=== PATIENT | female | born 1985 | race Caucasian/White ===

== ENCOUNTER 2020-01-14 11:26 | Emergency (ER) | payer SELFPAY ==
--- NOTE | 2020-01-14 12:30 | ER ---
Nurse's Notes [facility] Name: Padmini Santoro Age: 34 yrs Sex: Female : 1985 Arrival Date: 01/14/2020 Time: 11:27 Bed 28 [facility] MD: Diagnosis: Irritant contact dermatitis Presentation: 01/13 11:41 Chief complaint: Patient states: Rash on face, stomach, R arm started yesterday. Denies ca1 taking new medication or new food. Denies difficulty breathing and swallowing. Coronavirus screen: Client denies travel out of the [place] in the last 14 days. At this time, the client does not indicate any symptoms associated with coronavirus-19. Ebola Screen: Patient negative for fever greater than or equal to 101.5 degrees Fahrenheit, and additional compatible Ebola Virus Disease symptoms Patient denies exposure to infectious person. Patient denies travel to an Ebola-affected area in the 21 days before illness onset. No symptoms or risks identified at this time. Initial Sepsis Screen: Does the patient meet any 2 criteria? No. Patient's initial sepsis screen is negative. Does the patient have a suspected source of infection? No. Patient's initial sepsis screen is negative. Risk Assessment: Do you want to hurt yourself or someone else? Patient reports no desire to harm self or others. Onset of symptoms was January 14, 2020. 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 - Social history:: Smoking status: Patient denies any tobacco usage or history of. Screenin:43 Abuse screen: Denies threats or abuse. Nutritional screening: No deficits noted. jd3 Tuberculosis screening: No symptoms or risk factors identified. Fall Risk Ambulatory Aid- None/Bed Rest/Nurse Assist (0 pts). Gait- Normal/Bed Rest/Wheelchair (0 pts) Mental Status- Oriented to own ability (0 pts). Total Garner Fall Scale indicates No Risk (0-24 pts). Assessment: 12:42 General: Appears in no apparent distress. uncomfortable, Behavior is calm, cooperative, jd3 appropriate for age. Pain: Complains of pain in face Quality of pain is described as burning. Neuro: Level of Consciousness is awake, alert, obeys commands, Oriented to person, place, time, situation. Cardiovascular: Capillary refill < 3 seconds Patient's skin is warm and dry. Respiratory: Airway is patent Respiratory effort is even, unlabored, Respiratory pattern is regular, symmetrical, Denies cough, shortness of breath. GI: No signs and/or symptoms were reported involving the gastrointestinal system. : No signs and/or symptoms were reported regarding the genitourinary system. EENT: No signs and/or symptoms were reported regarding the EENT system. Derm: Skin is intact, Skin is dry, Skin is normal, Skin temperature is warm Rash noted that is itchy, red, on face. Musculoskeletal: Circulation, motion, and sensation intact. Range of motion: intact in all extremities. Vital Signs: 11:41 BP 99 / 86; Pulse 68; Resp 16 S; Temp 97.6(TE); Pulse Ox 100% on R/A; Weight 77.11 kg ca1 (R); Height 5 ft. 3 in. (160.02 cm) (R); Pain 0/10; 11:41 Body Mass Index 30.11 (77.11 kg, 160.02 cm) ca1 ED Course: 11:27 Patient arrived in ED. as 11:43 Triage completed. ca1 11:43 Arm band placed on right wrist. ca1 12:01 Isamar Melendez FNP-C is [facility]. snw 12:01 Warner Post MD is Attending Physician. snw 12:29 Sampson Love RN is Primary Nurse. jd3 12:43 Patient has correct armband on for positive identification. Bed in low position. Call jd3 light in reach. Side rails up X 1. Adult w/ patient. Pulse ox on. NIBP on. 12:53 No provider procedures requiring assistance completed. Patient did not have IV access jd3 during this emergency room visit. Administered Medications: 12:42 Drug: predniSONE 40 mg Route: PO; jd3 12:53 Follow up: Response: Medication administered at discharge. jd3 12:42 Drug: Pepcid 20 mg Route: PO; jd3 12:53 Follow up: Response: Medication administered at discharge. jd3 12:42 Drug: ZyrTEC - Cetirizine 10 mg Route: PO; jd3 12:53 Follow up: Response: Medication administered at discharge. jd3 Outcome: 12:30 Discharge ordered by . snw 12:53 Discharged to home ambulatory, with family. jd3 12:53 Condition: stable 12:53 Discharge instructions given to patient, family, Instructed on discharge instructions, follow up and referral plans. medication usage, Demonstrated understanding of instructions, follow-up care, medications, Prescriptions given X 4. 12:53 Patient left the ED. jd3 Signatures: Isamar Melendez, ROCIO-C SHAGGER-Ana Jo Jonathon RN RN jd3 Inna Doherty RN RN ca1
--- NOTE | 2020-01-14 12:31 | EDPHYS ---
Physician Documentation [facility] Name: Padmini Santoro Age: 34 yrs Sex: Female : 1985 Arrival Date: 01/14/2020 Time: 11:27 Bed 28 Private MD: ED Physician Warner Post HPI: 01/13 12:33 This 34 yrs old Female presents to ER via Ambulatory with complaints of Rash. snw 12:33 The patient's rash thought to be caused by Dermatitis. The rash is located on the left snw zygomatic area and left gnosticism and left side of forehead and anterior aspect of right lateral abdomen. The rash can be described as erythematous, raised. Onset: The symptoms/episode began/occurred suddenly. Associated signs and symptoms: Pertinent positives: itching. Severity of symptoms: At their worst the symptoms were moderate. The patient has not experienced similar symptoms in the past. The patient has not recently seen a physician. No new products, foods, does have a dog who is outside and inside. 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 - Social history:: Smoking status: Patient denies any tobacco usage or history of. ROS: 12:30 Constitutional: Negative for fever, chills, and weight loss, Eyes: Negative for injury, snw pain, redness, and discharge, ENT: Negative for injury, pain, and discharge, Neck: Negative for injury, pain, and swelling, Cardiovascular: Negative for chest pain, palpitations, and edema, Respiratory: Negative for shortness of breath, cough, wheezing, and pleuritic chest pain, Abdomen/GI: Negative for abdominal pain, nausea, vomiting, diarrhea, and constipation, Back: Negative for injury and pain, : Negative for injury, bleeding, discharge, and swelling, MS/Extremity: Negative for injury and deformity, Neuro: Negative for headache, weakness, numbness, tingling, and seizure, Psych: Negative for depression, anxiety, suicide ideation, homicidal ideation, and hallucinations. 12:30 Skin: Positive for rash. Exam: 12:30 Constitutional: This is a well developed, well nourished patient who is awake, alert, snw and in no acute distress. Eyes: Pupils equal round and reactive to light, extra-ocular motions intact. Lids and lashes normal. Conjunctiva and sclera are non-icteric and not injected. Cornea within normal limits. Periorbital areas with no swelling, redness, or edema. ENT: Nares patent. No nasal discharge, no septal abnormalities noted. Tympanic membranes are normal and external auditory canals are clear. Oropharynx with no redness, swelling, or masses, exudates, or evidence of obstruction, uvula midline. Mucous membranes moist. Neck: Trachea midline, no thyromegaly or masses palpated, and no cervical lymphadenopathy. Supple, full range of motion without nuchal rigidity, or vertebral point tenderness. No Meningismus. Chest/axilla: Normal chest wall appearance and motion. Nontender with no deformity. No lesions are appreciated. Cardiovascular: Regular rate and rhythm with a normal S1 and S2. No gallops, murmurs, or rubs. Normal PMI, no JVD. No pulse deficits. Respiratory: Lungs have equal breath sounds bilaterally, clear to auscultation and percussion. No rales, rhonchi or wheezes noted. No increased work of breathing, no retractions or nasal flaring. Abdomen/GI: Soft, non-tender, with normal bowel sounds. No distension or tympany. No guarding or rebound. No evidence of tenderness throughout. Back: No spinal tenderness. No costovertebral tenderness. Full range of motion. MS/ Extremity: Pulses equal, no cyanosis. Neurovascular intact. Full, normal range of motion. Neuro: Awake and alert, GCS 15, oriented to person, place, time, and situation. Cranial nerves II-XII grossly intact. Motor strength 5/5 in all extremities. Sensory grossly intact. Cerebellar exam normal. Normal gait. Psych: Awake, alert, with orientation to person, place and time. Behavior, mood, and affect are within normal limits. 12:30 Head/face: Noted is rash, of the left side of forehead, left gnosticism and left zygomatic area. 12:30 Skin: Appearance: normal except for affected area, contact dermatitis, on the anterior aspect of right lateral abdomen and right arm. Vital Signs: 11:41 BP 99 / 86; Pulse 68; Resp 16 S; Temp 97.6(TE); Pulse Ox 100% on R/A; Weight 77.11 kg ca1 (R); Height 5 ft. 3 in. (160.02 cm) (R); Pain 0/10; 11:41 Body Mass Index 30.11 (77.11 kg, 160.02 cm) ca1 MDM: 12:19 Patient medically screened. snw 12:33 Data reviewed: vital signs, nurses notes. Data interpreted: Pulse oximetry: on room air snw is 100 %. Interpretation: normal. Special discussion: Based on the history and exam findings, there is no indication for further emergent testing or inpatient evaluation. I discussed with the patient/guardian the need to see the primary care provider for further evaluation of the symptoms. Administered Medications: 12:42 Drug: predniSONE 40 mg Route: PO; jd3 12:53 Follow up: Response: Medication administered at discharge. jd3 12:42 Drug: Pepcid 20 mg Route: PO; jd3 12:53 Follow up: Response: Medication administered at discharge. jd3 12:42 Drug: ZyrTEC - Cetirizine 10 mg Route: PO; jd3 12:53 Follow up: Response: Medication administered at discharge. jd3 Disposition: 14:47 Co-signature as Attending Physician, Warner Post MD I agree with the assessment and kdr plan of care. Disposition: 01/14/20 12:30 Discharged to Home. Impression: Irritant contact dermatitis. - Condition is Stable. - Discharge Instructions: Contact Dermatitis, Pruritus, Rehydration, Adult. - Prescriptions for Elimite 5 % Topical Cream - apply 1 application by TOPICAL route one time Wash after 12 hours.; 60 gram. Pepcid 20 mg Oral Tablet - take 1 tablet by ORAL route every 12 hours for 10 days; 20 tablet. Zyrtec 10 mg Oral Tablet - take 1 tablet by ORAL route once daily As needed; 20 tablet. Prednisone 20 mg Oral Tablet - take 2 tablet by ORAL route once daily for 5 days; 10 tablet. - Medication Reconciliation Form, Thank You Letter, Antibiotic Education, Prescription Opioid Use form. - Follow up: Emergency Department; When: As needed; Reason: Worsening of condition. Follow up: Private Physician; When: 1 week; Reason: Recheck today's complaints, Continuance of care, Re-evaluation by your physician. Signatures: Warner Post MD MD kdr Waters, Shelly, [employer]-Sampson Poon RN RN jd3 AcInna anand RN RN ca1 Corrections: (The following items were deleted from the chart) 12:53 12:30 01/14/2020 12:30 Discharged to Home. Impression: Irritant contact dermatitis. jd3 Condition is Stable. Forms are Medication Reconciliation Form, Thank You Letter, Antibiotic Education, Prescription Opioid Use. Follow up: Emergency Department; When: As needed; Reason: Worsening of condition. Follow up: Private Physician; When: 1 week; Reason: Recheck today's complaints, Continuance of care, Re-evaluation by your physician. snw
[2020-01-14] MEDS ORDERED: predniSONE 20 MG TAB ONE (12:52)
[2020-01-14] MEDS ORDERED: CETIRIZINE HCL 5 MG TABLET ONE (12:52)
[2020-01-14] MEDS ORDERED: FAMOTIDINE 20 MG TAB ONE (12:52)
[2020-01-14 14:15] VITALS: BP 99/86; TEMP 97.6; O2SAT 100
== END 2020-01-14 12:53 | disposition home or self-care (01) ==
LOC: ER 11:26
DX: L24.9 Irritant contact dermatitis, unspecified cause (principal)
CPT/HCPCS: 99283; J7512